=== PATIENT | male | born 1960 | race Caucasian/White ===

== ENCOUNTER 2021-05-06 06:41 | Emergency (ER) | payer SELFPAY ==
--- NOTE | 2021-05-06 07:26 | EDM.PDOC ---
ED HPI GENERAL MEDICAL PROBLEM - General Stated Complaint: SHORTNESS OF BREATH, POSSIBLE COVID Time Seen by Provider: 05/06/21 07:07 Source of Information: Reports: Patient History Limitations: Reports: No Limitations - History of Present Illness INITIAL COMMENTS - FREE TEXT/NARRATIVE: 60-year-old male presents for shortness of breath and concerns for COVID-19 infection. This patient eloped prior to my exam. I did not meet the patient. I did not examine the patient. Preorder chest x-ray and Covid swab were placed by me but again I never saw the patient. "ribs" Pain Score (Numeric/FACES): 5 - Related Data Allergies Allergy/AdvReac Type Severity Reaction Status Date / Time No Known Allergies Allergy Verified 05/06/21 07:37 Home Meds: Home Meds . [No Known Home Meds] 05/06/21 [History] ED ROS GENERAL - Review of Systems Review Of Systems: Unable To Obtain (patient eloped) Reason Not Obtained: patient eloped prior to my assessment ED EXAM, GENERAL - Physical Exam Exam: Not Obtained (patient eloped) Reason Not Obtained: patient eloped #1 Interpretation EKG Date: 05/06/21 Time: 07:33 Rhythm: NSR Rate (Beats/Min): 89 [place]: Normal P-Wave: Present QRS: Normal ST-T: Normal QT: Normal NC/PQ Interval: 143 EKG Interpretation Comments: no acute ischemic changes identified Course - Vital Signs Last Recorded V/S: Last Vital Signs Temp 98.4 F 05/06/21 07:34 Pulse 90 05/06/21 07:55 Resp 20 05/06/21 07:55 BP 133/73 05/06/21 07:55 Pulse Ox 92 L 05/06/21 07:55 - Orders/Labs/Meds Labs: Laboratory Tests 05/06/21 Range/Units 07:32 SARS-CoV-2 RNA (YODIT) POSITIVE H (NEGATIVE) - Re-Assessments/Exams Free Text/Narrative Re-Assessment/Exam: 05/06/21 08:46 Patient eloped prior to my examination. I did do a preorder chest x-ray and COVID-19 swab. Chest x-ray showed an infiltrate and COVID-19 swab was positive. 05/06/21 08:48 I did attempt to call patient back, however, his voicemail is not set up so I was unable to leave a message. Departure - Departure Time of Disposition: 08:48 Disposition: Eloped 07 Condition: Undetermined Clinical Impression: COVID - Discharge Information Referrals: PCP,None [Primary Care Provider] - Sepsis Event Note (ED) - Focused Exam Vital Signs: Vital Signs Temp Pulse Resp BP Pulse Ox 05/06/21 07:55 90 20 133/73 92 L 05/06/21 07:34 98.4 F 90 18 127/73 92 L
--- NOTE | 2021-05-06 08:01 | CR ---
HISTORY: Shortness of breath and chest pain. TECHNIQUE: One view of the chest. COMPARISON: No prior. FINDINGS: There is an infiltrate at the right lung base likely reflecting pneumonia. Suspected subtle small infiltrate within the right midlung zone laterally. No pneumothorax. No moderate or large pleural effusion. Cardiac size within normal limits. No pulmonary vascular congestion. IMPRESSION: Right lower lung zone infiltrate. Dictated by Abel Smallwood MD @ 05/06/2021 7:59:12 AM (Electronically Signed)
== END 2021-05-06 08:52 | disposition left against medical advice (07) ==
LOC: MW.ED 06:41
DX: U07.1 COVID-19 (principal)
CPT/HCPCS: 71045; 71045-26; 93005; 99285-25; U0002